=== PATIENT | female | born 1960 | race Caucasian/White ===

== ENCOUNTER → 2023-08-25 | Outpatient (CLI) | payer SELFPAY ==
--- NOTE | 2023-08-25 07:02 | US_ITS ---
STUDY: ABDOMINAL ULTRASOUND - RIGHT UPPER QUADRANT REASON FOR VISIT: Female, 63 years old CHEST PAIN TECHNIQUE: Ultrasound evaluation of the right upper quadrant was performed with real-time and static mcdaniel-scale imaging. TECHNICAL QUALITY: Adequate. COMPARISON: None. FINDINGS: Liver: The liver measures 18.0 cm. There is normal echogenicity of the liver. The bile ducts are within normal limits. There is hepatic color flow. The direction of portal flow is hepatopetal. There are multiple subtle hypoechoic lesions throughout the liver worrisome for metastatic disease. The largest measures 4.2 cm in the right lobe of the liver. Gallbladder: Normal distended gallbladder. The gallbladder wall measures 2 mm. There is a negative sonographic Acosta''s sign. There is no pericholecystic fluid. There are gallbladder polyps. Common Bile Duct (C.B.D.): The common bile duct measures 2 mm. Pancreas: Normal size of the head, body and tail of the pancreas. There is normal echogenicity of the pancreas. 3 cm hypoechoic mass in the body the pancreas worrisome for pancreatic carcinoma and correlation with CT is recommended. Right Kidney: Normal size of the right kidney. The right kidney measures 10.6 cm. Normal renal cortex. The right cortex measures 1.2 cm. 1.8 cm cyst midsection of the right kidney. There is no right hydronephrosis. US/Abdomen Limited IMPRESSION: 1. Cholesterolosis. 2. Suspect 3 cm pancreatic carcinoma with hepatic metastases. Correlation with CT is recommended. Electronically Signed: Joseluis Soni MD at 13:03 EDT ,
== END | disposition home or self-care (01) ==
PROVIDERS: PCP Family Medicine
DX: R07.9 Chest pain, unspecified (principal)
CPT/HCPCS: 76705

== ENCOUNTER → 2023-08-28 | Outpatient (CLI) | payer SELFPAY, OTHER ==
--- NOTE | 2023-08-28 12:43 | CT_ITS ---
INDICATION: ABNORMAL TEST RESULTS EXAMINATION: CT ABDOMEN AND PELVIS WITH AND WITHOUT CONTRAST - CT Abdomen And Pelvis WO/W Contrast Injection TECHNIQUE: Helically acquired images were obtained of the abdomen and pelvis both before and after IV contrast. The protocol utilizes one or more of the following dose reduction techniques: automated exposure control, adjustment of mA and/or kV according to patient size,and/or use of iterative reconstruction technique. IV Contrast dosage and agent: 100 mL of Isovue 300 Oral contrast: None. RADIATION DOSAGE (If Supplied By Facility): CTDIvol = ( 8.07 ) mGy, DLP = ( 942.91 ) mGycm COMPARISON: Prior study dated: Ultrasound 08/25/2023 FINDINGS: LOWER CHEST: Lung bases are clear. No cardiomegaly or pericardial effusion. LIVER: Normal size of the liver. Multiple masses are seen throughout the liver. For instance a segment 7 mass measures 5.3 cm. Masses are seen throughout both lobes. This correlates with the appearance on ultrasound. GALLBLADDER AND BILIARY TREE: No calcified gallstones. No gallbladder distension or wall edema. No intra- or extrahepatic biliary ductal dilation. PANCREAS: Abnormal appearance of the pancreas. There is a distal pancreatic body hypodense mass measuring 4 x 3 cm. There is encasement of the splenic artery. The splenic vein is also likely involved and occluded as it is not visualized and varices are present. The pancreatic tail is atrophic with ductal dilatation. SPLEEN: Normal size without focal cystic or solid mass. ADRENAL GLANDS: No nodules. KIDNEYS AND URETERS: Normal renal size and position. No hydronephrosis. Simple right renal cyst. No specific follow-up recommended. PERITONEUM: No ascites or free air. No other fluid collection. BOWEL: The stomach is unremarkable. Normal caliber small bowel. No obstruction. Contrast extends throughout the bowel. No colonic wall thickening. Appendix not seen. LYMPH NODES: No enlarged mesenteric or retroperitoneal lymph nodes. VESSELS: Aorta is non-dilated. URINARY BLADDER: Unremarkable. REPRODUCTIVE ORGANS: No pelvic masses. ABDOMINAL WALL: No discrete abdominal or pelvic wall hernia. BONES: No lytic or blastic abnormality. CT/CT Abd/Pelvis W/WO Contrast IMPRESSION: Mass at the distal pancreatic body concerning for neoplasm. Multiple hepatic masses are seen, appearance consistent with metastatic disease. 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 Varices present. There is also encasement of the splenic artery. Electronically Signed: Trace Cordova MD at 6:53 EDT ,
== END | disposition home or self-care (01) ==
PROVIDERS: PCP Family Medicine; Referring Provider Family Medicine; Visit Provider Family Medicine
DX: R93.89 Abnormal findings on diagnostic imaging of other specified body structures (principal)
CPT/HCPCS: 74178; Q9967

== ENCOUNTER 2023-09-13 16:00 | Outpatient (RCR) | payer SELFPAY | END 2023-09-20 23:59 | LOC: NS 16:00 | PROVIDERS: PCP Family Medicine; Visit Provider Internal Medicine Medical Oncology | DX: Z71.3 Dietary counseling and surveillance (principal) ==